=== PATIENT | male | born 1965 | race Caucasian/White ===

== ENCOUNTER 2023-09-18 08:25 | Emergency (ER) | payer BC, SELFPAY ==
[2023-09-18 08:26] VITALS: BP 151/91; PULSE 72; RESP 18; TEMP 36.4; O2SAT 98; BMI 26.6
--- NOTE | 2023-09-18 08:57 | ED.VIS.LOWEX ---
HPI History of Present Illness HPI Narrative: Patient presents with right ankle injury that occurred last night. Patient states his dog ran into him and he inverted his ankle. Patient states he thought he felt a pop last night. Patient states that his pain is dull. Patient states it is worse with walking. Patient states nothing seems to help it. Patient denies any paresthesias or weakness. Patient denies any other injuries. Patient denies any head injury or loss of consciousness. Chief Complaint: Lower Extremity Injury Informant: patient Occured/Mechanism Comment: Inversion injury Onset/Context/Timing Onset: Yesterday Context: Sudden Onset Timing: Continuous Quality of Pain: Sharp Location: Right ankle Worsened by: Walking Relieved by: Nothing Associated Symptoms Associated Symptoms: Negative for Parasthesia, Weakness or Loss of Funtion PFSH PFS Medical History (Updated 09/18/23 @ 09:[address] Jung Aceves DO) COPD (chronic obstructive pulmonary disease) Hypertension Allergy/AdvReac Type Severity Reaction Status Date / Time No Known Allergies Allergy Verified 09/18/23 08:26 Surgical History (Updated 09/18/23 @ 09:[address] Jung Aceves DO) Hx of nasal septoplasty Social History (Updated 09/18/23 @ 09:[address] Jung Aceves DO) Smoking Status: Former smoker alcohol intake: current alcohol intake frequency: holidays/special occasions only ROS ROS ED Constitutional Constitutional ED: Denies chills or fever(s) Eyes Eyes: Denies blurry vision or change in vision ENT ENT ED: Denies rhinorrhea or sore throat Cardiovascular Cardiovascular: Denies chest pain or palpitations Respiratory/Chest Respiratory/Chest: Denies cough or dyspnea Gastrointestinal Gastrointestinal: Denies nausea or vomiting Genitourinary Genitourinary ED: Denies dysuria or hematuria Musculoskeletal Musculoskeletal: Denies back pain or neck pain Integumentary Denies abscess or rash Neurologic Neurologic: Denies headache(s) or weakness Allergic/Immunologic Allergic/Immunologic ED: Denies mouth swelling or urticaria EXAM Physical Exam Const Vital Signs: 09/18/23 08:26 Temperature 97.6 F L Temperature Source Temporal Pulse Rate 72 Respiratory Rate 18 Blood Pressure 151/91 H Blood Pressure Mean 111 Pulse Ox 98 Oxygen Delivery Method Room Air Positive well nourished and well developed General Appearance ED: well developed and NAD HEENT Reports moist mucous membranes Neck full ROM and supple Extremity Extremity Narrative: There is tenderness, edema, and slight ecchymosis over the anterior lateral aspect of the right ankle and hindfoot. There is no obvious deformity noted. There is no tenderness over the medial malleolus. There is no tenderness over the proximal fibula. There is no tenderness over the fifth metatarsal. Range of motion was slightly limited in all motions of the right ankle secondary to pain. Sensation was intact to light touch in all digits. Capillary refills less than 2 seconds in all digits. Pedal pulses are equal bilaterally. Neuro oriented x3, CN's II-XII intact bilaterally, moves all extremities and no sensory deficits noted Sensorium / Orientation: alert Motor Exam: strength 5/5 throughout Psych mental status grossly normal Skin no wounds MDM MDM MDM Narrative Medical decision making narrative: Differential diagnosis includes fracture and sprain. X-rays of the right ankle will be obtained to assess for fracture. Radiography Diagnostic Testing: X-rays of the right ankle were obtained. There are 3 views. On my independent interpretation, there is a small avulsion fracture of the talus. There is minimal displacement noted. There is some soft tissue swelling noted. Radiologist also interpreted the x-rays and agrees. Treatment and Re-Evaluation Narrative: Patient was advised of his findings. Patient was advised that the avulsion fracture is very small and will be treated like a sprain. Patient was placed in a walking boot. Patient was instructed to ice and elevate the right ankle. Patient was instructed take Tylenol or ibuprofen as needed for pain. Patient was instructed to follow-up with his primary care physician in 5 to 7 days. Patient understood and was agreeable with the plan. All questions were answered. Discharge Plan Triage Chief Complaint: Lower Extremity Injury ED Provider: Jung Aceves Dx/Rx/DC Orders Clinical Impression: Avulsion fracture of right talus, Hypertension Instructions: ED Ankle Sprain (Adult) Primary Care Provider: Neto Samuel Referrals: Neto Samuel DO [Primary Care Provider] - 5-7 Days Disposition Disposition: Home, Self Care
--- NOTE | 2023-09-18 09:00 | RAD_ITS ---
STUDY: X-RAY - RIGHT ANKLE REASON FOR EXAM: Male, 58 years old. Anterior and lateral ankle pain following injury. TECHNIQUE: 3 view(s) of the ankle. COMPARISON: None. FINDINGS: Normal visualized distal tibia and fibula. Normal medial and lateral malleoli. Normal tibiotalar articulation and ankle mortise. I suspect an avulsion fracture along the dorsal anterior aspect of the talus. Overlying soft tissue swelling. The visualized subtalar, talonavicular, calcaneocuboid and tarsal articulations are normal. Soft tissue swelling. RAD/Ankle min 3 Views IMPRESSION: Findings suggestive of an avulsion fracture along the dorsal anterior aspect of the talus with overlying soft tissue swelling. Electronically Signed: Eulogio Frank MD at 9:36 EDT ,
[2023-09-18 10:20] VITALS: BP 140/69; PULSE 82; RESP 16; TEMP 36.6; O2SAT 97
== END 2023-09-18 10:20 | disposition home or self-care (01) ==
PROVIDERS: Emergency Provider Emergency Medicine; PCP Family Medicine; Visit Provider Emergency Medicine
DX: S92.151A Displaced avulsion fracture (chip fracture) of right talus, initial encounter for closed fracture (principal); J44.9 Chronic obstructive pulmonary disease, unspecified; W54.1XXA Struck by dog, initial encounter; I10 Essential (primary) hypertension; Z87.891 Personal history of nicotine dependence
CPT/HCPCS: 73610; 99282